=== PATIENT | male | born 1950 | race Caucasian/White ===

== ENCOUNTER 2020-12-13 06:07 | Day surgery (SDC) | payer MEDICARE ==
[2020-12-06 15:47] LABS: BASOPHILS % (AUTO) 0.4 % (0-1); EOSINOPHILS # (AUTO) 0.2 X10'3 (0-0.9); EOSINOPHILS % (AUTO) 3.1 % (0-6); LYMPHOCYTES # (AUTO) 1.3 X10'3 (1.1-4.8); LYMPHOCYTES % (AUTO) 25.3 % (21-51); MEAN CORPUSCULAR HEMOGLOBIN 31.4 PG (27.0-31.0); MEAN CORPUSCULAR HGB CONC 34.3 g/dL (33.0-36.5); MEAN CORPUSCULAR VOLUME 91.6 FL (78-98); MONOCYTES # (AUTO) 0.5 X10'3 (0-0.9); MONOCYTES % (AUTO) 9.3 % (2-12); NEUTROPHILS # (AUTO) 3.2 X10'3 (1.8-7.7); NEUTROPHILS % (AUTO) 61.9 % (42-75); PRE OP HEMATOCRIT 45.3 % (42.0-52.0); PRE OP HEMOGLOBIN 15.5 g/dL (14.0-17.9); PRE OP PLATELET COUNT 212 X10'3 (140-440); RED BLOOD COUNT 4.94 X10'6 (4.70-6.10); RED CELL DISTRIBUTION WIDTH 12.8 % (11.5-14.5)
[2020-12-06 16:03] LABS: ALBUMIN 3.9 G/DL (3.4-5.0); ALBUMIN/GLOBULIN RATIO 1.1 (1.1-1.5); ALKALINE PHOSPHATASE 83 IU/L (46-116); BLOOD UREA NITROGEN 18 MG/DL (7-18); BUN/CREATININE RATIO 21.7 (5.4-32.0); CHLORIDE 106 MMOL/L (99-107); CREATININE 0.83 MG/DL (0.60-1.10); PRE OP ALT 31 U/L (30-65); PRE OP ANION GAP 7 (8-16); PRE OP AST 20 U/L (10-37); PRE OP BILIRUB, TOTAL 0.7 MG/DL (0.0-1.0); PRE OP GLUCOSE 99 MG/DL (70-104); PRE OP POTASSIUM 3.8 MMOL/L (3.4-5.1); PRE OP SODIUM 142 MMOL/L (135-145); TOTAL CARBON DIOXIDE 28.7 MMOL/L (24-32); TOTAL PROTEIN 7.6 G/DL (6.4-8.2); eGFR > 90 ML/MIN
[2020-12-06 16:34] LABS: CLARITY,URINE CLEAR (Clear); GLUCOSE, URINE NEGATIVE (Neg); KETONES,URINE NEGATIVE (Neg); LEUKOCYTE ESTERASE ,URINE NEGATIVE (Neg); NITRITES, URINE NEGATIVE (Neg); OCCULT BLOOD,URINE NEGATIVE (Neg); PROTEIN,URINE NEGATIVE (Neg); UROBILINOGEN,URINE 0.2 E.U/dL (0.2-1.0)
[2020-12-06 16:41] LABS: COLOR,URINE DARK YELLOW (Yellow); UA COLLECTION TYPE NON-SPECIFIED
[2020-12-13] VITALS (14 sets, daily range): BP systolic 133–171; BP diastolic 78–98
[~2020-12-13] VITALS: Ht 175.3 cm; Wt 101.3 kg
[~2020-12-13 06:07] MED LIST: CARV20CP PO; DOCUMENT DATE & TIME OF BETA-BLOCKER PO ONE; ERGO400C PO; MULT-1085 PO; NAPR220C15 PO; NIA500ERT PO; PANT40TA54 PO; RED600TA PO; VALS1TAB80 PO; cefazolin/dext.iso 2gm/100ml IV ONE; famotidine 20mg tablet PO ONE; ringers solution, lacted 1,000 ML IV SCH
[2020-12-13] MEDS ORDERED: BUPIVAcaine/PF 2.5 mg/ml (0.25%) 30ml vial ONE (06:42)
[2020-12-13] MEDS ORDERED: midazolam 1 mg/ML 2ml injection ONE (07:22)
[2020-12-13] MEDS ORDERED: fentaNYL/PF 50MCG/1 ML 2ML syringe ONE (07:22)
[2020-12-13] MEDS ORDERED: rocuronium 10mg/ml inj IV ONE (07:26)
[2020-12-13] MEDS ORDERED: LIDOcaine 2% (20mg/ml) 5ml vial ONE (07:26)
[2020-12-13] MEDS ORDERED: propofol inj 20 ML IV ONE (07:26)
[2020-12-13] MEDS ORDERED: famotidine 20mg tablet ONE (07:42)
[2020-12-13] MEDS ORDERED: ondansetron/PF 4mg/2ml inj IV PRN (07:55)
[2020-12-13] MEDS ORDERED: ringers solution, lacted 1,000 ML IV SCH (07:55)
[2020-12-13] MEDS ORDERED: proCHLORperazine 10 MG/2 ml inj IV PRN (07:55)
[2020-12-13] MEDS ORDERED: morphine 2 MG/ML inj. syringe IV PRN (07:55)
[2020-12-13] MEDS ORDERED: morphine 4 MG/ML inj SYRINge IV PRN (07:55)
[2020-12-13] MEDS ORDERED: glycopyrrolate 0.2mg/ml inj ONE (07:55)
[2020-12-13] MEDS ORDERED: sevoflurane 250ml liquid IH ONE (07:55)
[2020-12-13] MEDS ORDERED: neostigmine methylsulfate 1 MG/ML 10ml vial ONE (07:55)
[2020-12-13] MEDS ORDERED: meperidine/PF 25mg/ml syringe IV PRN ×3 (07:55)
[2020-12-13] MEDS ORDERED: acetaminophen 1,000mg/100ml IV 100 ML IV ONE (08:59)
[2020-12-13] MEDS ORDERED: dexamethasone sod phosphate 4mg/ml inj. ONE (08:59)
[2020-12-13] MEDS ORDERED: ePHEDrine 50MG/ML INJ. ONE (08:59)
[2020-12-13] MEDS ORDERED: ondansetron/PF 4mg/2ml inj ONE (08:59)
[2020-12-13] MEDS ORDERED: succinylcholine 20mg/ml inj IV ONE (08:59)
[2020-12-13] MEDS ORDERED: BUPIVAcaine/PF 2.5mg/ml (0.25%) 10ml vial ONE (09:00)
[2020-12-13] MEDS ORDERED: BUPIVACAINE liposomal/PF 13.3 MG/ML vial IM ONE (09:00)
--- NOTE | 2020-12-13 09:25 | NUR ---
Received from OR via [facility], accompanied by Anesthesiologist and report given by Anesthesiologist. PATIENT WAKING UP, NO S/S OF PAIN, V/S WNL, SCD ON, 20G TO LUE, LAP SURGICAL SITES TO ABDOMEN CDI W/ABD BINDER ON.
[2020-12-13] MEDS ORDERED: HYDROcodone/acetaminophen 10/325mg tab PO ONE (09:50)
--- NOTE | 2020-12-13 11:15 | NUR ---
PATIENT A&OX4, NORCO GIVEN FOR PAIN, V/S WNL, SCD ON, 20G TO LUE, LAP SURGICAL SITES TO ABDOMEN CDI W/ABD BINDER ON. PATIENT DRESSED AND I HAVE REVIEWED D/C INSTRUCTIONS WITH HIM AND HE HAS VERBALIZED UNDERSTANDING. HE HAS BEEN UNABLE TO PEE SO FAR AFTER 4 CUPS OF COFFEE AND 3 CUPS WATER. PATIENT TAKEN TO PAS AND REPORT GIVEN TO RN WHO HAS TAKEN OVER PATIENT CARE. HIS IS AT BEDSIDE AND HE HAS ALL HIS BELONGINGS WITH HIM
--- NOTE | 2020-12-13 11:20 | NUR ---
PT ARRIVED TO 246 WITH BELONGINGS, RECEIVED REPORT FROM JOLANTA DSOUZA, WITH AT BEDSIDE, PT DRINKING COFFEE AND IVF BOLUS INFUSING, CALL LIGHT IN REACH.
[2020-12-13] MEDS ORDERED: oxyCODONE/APAP 10/325mg tablet PO STA (12:36)
--- NOTE | 2020-12-13 12:40 | NUR ---
PT UP WALKING, C/O PAIN 12/23 GIVEN [address] CID ORDER, PT UNABLE TO VOID-BLADDER SCAN SHOWING 90CC IN BLADDER. DISCUSSED CURRENT SITUATION WITH DR. CID-PT OK TO BE DISCHARGED WITHOUT VOID.
--- NOTE | 2020-12-13 12:50 | NUR ---
PT DOING WELL, UP MOVING, PIV D/CD-CANULA INTACT, DISCHARGE INSTRUCTIONS ALREADY GIVEN BUT DISCUSSED HOME PLAN OF CARE. TOLERATING PERCOCET, VSS, ABD BINDER IN PLACE, DRESSING CLEAN/INTACT. ALL QUESTIONS ANSWERED.
== END 2020-12-13 12:55 | disposition home or self-care (01) ==
LOC: PAS 06:07
PROVIDERS: ATTEND Surgery
DX: K42.9 Umbilical hernia without obstruction or gangrene (principal); K21.9 Gastro-esophageal reflux disease without esophagitis; N40.0 Benign prostatic hyperplasia without lower urinary tract symptoms; E03.9 Hypothyroidism, unspecified; I10 Essential (primary) hypertension; E66.9 Obesity, unspecified; Z68.33 Body mass index [BMI] 33.0-33.9, adult; E78.5 Hyperlipidemia, unspecified; G47.33 Obstructive sleep apnea (adult) (pediatric); Z79.899 Other long term (current) drug therapy; Z96.659 Presence of unspecified artificial knee joint; Z98.890 Other specified postprocedural states
CPT/HCPCS: 36415; 49652; 64488; 80053; 81003; 82948; 85025; 93005; C1758; C1781; C9290; J0131; J0330; J1100; J2001; J2250; J2405; J2704; J2710; J3010; J3490; A4215; A4618; J7120

== ENCOUNTER 2020-12-13 22:18 | Emergency (ER) | payer MEDICARE ==
[~2020-12-13] VITALS: Ht 175.3 cm; Wt 100.0 kg
[~2020-12-13 22:18] MED LIST changes: -DOCUMENT DATE & TIME OF BETA-BLOCKER PO ONE; -cefazolin/dext.iso 2gm/100ml IV ONE; -famotidine 20mg tablet PO ONE; -ringers solution, lacted 1,000 ML IV SCH
[2020-12-13] MEDS ORDERED: LIDOcaine 2% 10ml TOPICAL JELLY (Urojet) MM ONE (23:50)
[2020-12-14 00:51] VITALS: BP 123/87
== END 2020-12-14 00:45 | disposition home or self-care (01) ==
LOC: ER 22:18
DX: R33.9 Retention of urine, unspecified (principal); Z98.890 Other specified postprocedural states; Z79.899 Other long term (current) drug therapy
CPT/HCPCS: 51702; 99284

== ENCOUNTER 2025-05-25 07:08 | Day surgery (SDC) | payer MEDICARE ==
[2025-05-24 12:19] LABS: CREATININE 1.00 MG/DL (0.60-1.10); TOTAL CARBON DIOXIDE 32.0 MMOL/L (24-32); eGFR 73 ML/MIN
[2025-05-24 12:21] LABS: INR 1.1 INR
[2025-05-24 12:23] LABS: MEAN PLATELET VOLUME 8.0 FL (7.4-10.4); RED CELL DISTRIBUTION WIDTH 13.1 % (11.5-14.5)
[~2025-05-25] VITALS: Ht 177.8 cm; Wt 100.7 kg
[~2025-05-25 07:08] MED LIST changes: -NIA500ERT PO
[2025-05-25] MEDS ORDERED: FLEC50TA PO (07:35)
[2025-05-25] MEDS ORDERED: morphine 10mg/ml inj. IV ONE (07:35)
[2025-05-25] MEDS ORDERED: APIX5TAB3 PO (07:35)
[2025-05-25] MEDS ORDERED: MIDAZolam 1mg/ml 10ml vial IV ONE (07:35)
[2025-05-25] MEDS ORDERED: amiodarone 150mg/dext, iso-os 100 ML IV ONE (07:35)
[2025-05-25] MEDS ORDERED: CARV6.253 PO (07:35)
[2025-05-25] MEDS ORDERED: normal saline 1000ml 1,000 ML IV SCH (07:35)
[2025-05-25] MEDS ORDERED: atropine 0.1mg/ml 10ml syringe IV ONE (07:35)
[2025-05-25] MEDS ORDERED: UBID100C51 PO (07:37)
--- NOTE | 2025-05-25 07:39 | ELECTROCARDIOGRAPH REPORT ---
[facility] Test Date: 2025-05-25 Test Time: 07:35:58 Pat Name: BIJAL GONZALEZ Department: [facility] Patient ID: [facility]-[id number] Room: Gender: M Manager Control: LUIS : 1950 Requested By: NIC GREEN Order Number: [id number] Reading MD: Dr. Humberto Katz Measurements Intervals [place] Rate: 62 P: 0 MO: 0 QRS: 63 QRSD: 99 T: 37 QT: 437 QTc: 444 Interpretive Statements Atrial flutter with predominant 4:1 AV block Abnormal R-wave progression, late transition Electronically Signed On 05-26-2025 6:54:[address] Humberto Katz Please click the below link to view image of tracing.
[2025-05-25 07:44] VITALS: BP 147/98; PULSE 66; RESP 14; TEMP 97.9; O2SAT 96
[2025-05-25 08:30] VITALS: RESP 15; O2SAT 97
[2025-05-25] MEDS ORDERED: midazolam 1 mg/ML 2ml injection ONE ×2 (08:34→08:58)
[2025-05-25] MEDS ORDERED: fentaNYL/PF 50MCG/1 ML 2ML syringe ONE (08:34)
[2025-05-25] MEDS ORDERED: atropine 0.1mg/ml 10ml syringe ONE (08:34)
[2025-05-25 09:23] VITALS: BP 126/82; PULSE 67; RESP 14; O2SAT 96
[2025-05-25 09:30] VITALS: BP 122/80; PULSE 69; RESP 17; O2SAT 95
--- NOTE | 2025-05-25 09:32 | CARDIOLOGY REPORT ---
DATE OF SERVICE: 05/25/2025 DICTATING PHYSICIAN: HARISH Ramos MD ELECTRICAL CARDIOVERSION PRIMARY PHYSICIAN: [facility]. PROCEDURES DONE: Electrical cardioversion. WATER METER READER: HARISH Ramos MD. INDICATION: The patient is a 75-year-old with hypertension, hyperlipidemia, sleep apnea, and paroxysmal atrial fibrillation. 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 His PAF started back on 06/04/2024, which was atrial flutter and at that time, he was treated with carvedilol and Eliquis. Then since it persisted, the patient was started on flecainide. Then after flecainide, his EKG turned to normal sinus rhythm on its own and then it kind of recurred again on 05/06/2025. After discussing risks, benefits and alternative options, the patient preferred to proceed with electrical cardioversion. DESCRIPTION OF PROCEDURE: Anterior and posterior pads were used. Using biphasic electrical energy, 150 joules, synchronized electrical cardioversion done, converted to normal sinus rhythm. The patient did have a first-degree AV block. IMPRESSION: A 75-year-old male with paroxysmal atrial flutter, which was persistent, converted back to normal sinus rhythm. RECOMMENDATIONS: * Continue carvedilol, flecainide, and Eliquis. * Recommended diet, weight loss, exercise program, and optimal treatment of sleep apnea. HARISH Ramos MD TID: [id number] RECEIPT: [id number] SAVAGE/ cc: [facility]
[2025-05-25 09:45] VITALS: BP 131/85; PULSE 71; RESP 15; O2SAT 96
--- NOTE | 2025-05-25 09:45 | ELECTROCARDIOGRAPH REPORT ---
[facility] Test Date: 2025-05-25 Test Time: 09:43:17 Pat Name: BIJAL GONZALEZ Department: [facility] Patient ID: [facility]-[id number] Room: Gender: M Correspondence Representative: LUIS : 1950 Requested By: NIC GREEN Order Number: [id number] Reading MD: Dr. Humberto Katz Measurements Intervals [place] Rate: 70 P: 11 WI: 434 QRS: 76 QRSD: 100 T: 44 QT: 420 QTc: 454 Interpretive Statements Sinus rhythm Prolonged WI interval Electronically Signed On 05-26-2025 6:54:[address] Humberto Katz Please click the below link to view image of tracing.
== END 2025-05-25 10:10 | disposition home or self-care (01) ==
LOC: SSTAY O 07:08
PROVIDERS: ATTEND Internal Medicine Cardiovascular Disease
DX: I48.0 Paroxysmal atrial fibrillation (principal); I48.92 Unspecified atrial flutter; R94.31 Abnormal electrocardiogram [ECG] [EKG]; I25.10 Atherosclerotic heart disease of native coronary artery without angina pectoris; I10 Essential (primary) hypertension; E78.5 Hyperlipidemia, unspecified; E66.9 Obesity, unspecified; E89.2 Postprocedural hypoparathyroidism; G47.30 Sleep apnea, unspecified; Z79.01 Long term (current) use of anticoagulants; Z79.899 Other long term (current) drug therapy; Z96.653 Presence of artificial knee joint, bilateral; Z68.31 Body mass index [BMI] 31.0-31.9, adult; Z88.8 Allergy status to other drugs, medicaments and biological substances; Z82.49 Family history of ischemic heart disease and other diseases of the circulatory system
CPT/HCPCS: 36415; 80048; 85025; 85610; 92960; 93005; J2250; J3010; J7030; Z7610; 99152; J0461